=== PATIENT | female | born 1955 | race Caucasian/White ===

== ENCOUNTER 2020-09-02 18:16 | Emergency (ER) | payer BC, OTHER ==
[2020-09-02] MEDS ORDERED: Sodium Chloride 0.9% 10 ML Syringe FLUSH PRN (18:33)
[2020-09-02] MEDS ORDERED: Aspirin 81 MG Tab.Chew PO ONE (18:34)
[2020-09-02] MEDS ORDERED: GI Cocktail Oral Solution 30 ML PO ONE (18:35)
--- NOTE | 2020-09-02 18:53 | EDM.PDOC ---
ED HPI GENERAL MEDICAL PROBLEM - General Stated Complaint: CHEST PRESSURE Time Seen by Provider: 09/02/20 18:30 Source of Information: Reports: Patient, RN History Limitations: Reports: No Limitations - History of Present Illness INITIAL COMMENTS - FREE TEXT/NARRATIVE: Pt. presents to ER with complaints of substernal chest pressure, upper abdominal/epigastric pressure, and 'lightness in arms". Pt. states that the symptoms started about 30 min prior to coming to the ER. Pt. states that the symptoms had mostly resolved by the time she got to ER. Her only complaint now is that of burning sensation in her upper chest/neck area. Pt. states that she got up and walked around her house, and states that she felt like her heart was racing. She has a watch that monitors pulse, and states that the highest reading was 105. These symptoms have also since resolved. No shortness of breath. Denies any lightheadedness. No diaphoresis. Pt. states that she was at rest, sitting and watching TV at onset of symptoms. She states that she has never experienced this discomfort in the past. Denies any significant risk factors for heart disease other than obesity. She denies any hypertension, hyperlipidemia, or smoking. Denies any history of diabetes. She denies any increased shortness of breath or chest pain with walking at this time. Onset: Today Onset Date: 09/02/20 Location: Reports: Chest Quality: Reports: Pressure Associated Symptoms: Reports: Chest Pain. Denies: Cough, Diaphoresis, Fever/Chills, Headaches, Malaise, Nausea/Vomiting, Rash, Seizure, Shortness of Breath, Syncope, Weakness Chest Pain Score (Numeric/FACES): 2 - Related Data Allergies Allergy/AdvReac Type Severity Reaction Status Date / Time No Known Allergies Allergy Verified 09/02/20 18:33 ED ROS GENERAL - Review of Systems Review Of Systems: See Below Constitutional: Reports: No Symptoms HEENT: Reports: No Symptoms Respiratory: Reports: No Symptoms Cardiovascular: Reports: Other (see HPI) Endocrine: Reports: No Symptoms GI/Abdominal: Reports: Abdominal Pain (epigastric/upper abdominal pressure) : Reports: No Symptoms Musculoskeletal: Reports: No Symptoms Skin: Reports: No Symptoms Neurological: Reports: No Symptoms Psychiatric: Reports: No Symptoms Hematologic/Lymphatic: Reports: No Symptoms Immunologic: Reports: No Symptoms ED EXAM, GENERAL - Physical Exam Exam: See Below Exam Limited By: No Limitations General Appearance: Alert, WD/WN, No Apparent Distress Head: Atraumatic, Normocephalic Neck: Normal Inspection, Supple, Non-Tender, Full Range of Motion Respiratory/Chest: No Respiratory Distress, Lungs Clear, Normal Breath Sounds, No Accessory Muscle Use, Chest Non-Tender Cardiovascular: Normal Peripheral Pulses, Regular Rate, Rhythm, No Edema, No JVD, No Murmur Peripheral Pulses: 4+: Radial (R) GI/Abdominal: Soft, Non-Tender, No Organomegaly, No Distention, No Mass (Female) Exam: Deferred Rectal (Female) Exam: Deferred Extremities: Normal Inspection, Normal Range of Motion, Non-Tender, No Pedal Edema, Normal Capillary Refill Neurological: Alert, Oriented, CN II-XII Intact, Normal Cognition, Normal Gait, Normal Reflexes, No Motor/Sensory Deficits, Sensory/Motor Deficit Psychiatric: Normal Affect Skin Exam: Warm, Dry, Intact, Normal Color, No Rash Lymphatic: No Adenopathy Course - Vital Signs Last Recorded V/S: Last Vital Signs Temp 36.6 C 09/02/20 18:16 Pulse 98 09/02/20 18:16 Resp 19 09/02/20 18:16 BP 167/70 H 09/02/20 18:16 Pulse Ox 98 09/02/20 18:16 - Orders/Labs/Meds Orders: Active Orders 24 hr Category Date Time Status EKG Documentation Completion [RC] STAT Care 09/02/20 18:33 Active Sodium Chloride 0.9% [Saline Flush] Med 09/02/20 18:33 Active 10 ml FLUSH ASDIRECTED PRN Peripheral IV Insertion Adult [OM.PC] Routine Oth 09/02/20 18:34 Ordered Medication Orders Sodium Chloride (Saline Flush) 10 ml FLUSH ASDIRECTED PRN PRN Reason: Keep Vein Open Labs: Laboratory Tests 09/02/20 09/02/20 09/02/20 Range/Units 18:35 18:35 18:35 WBC 7.7 (4.0-10.0) x10^3/uL RBC 4.50 (4.00-5.50) x10^6/uL Hgb 14.1 (12.0-16.0) g/dL Hct 41.3 (33.0-47.0) % MCV 91.8 (78.0-93.0) fL MCH 31.3 (26.0-32.0) pg MCHC 34.1 (32.0-36.0) g/dL RDW Coeff of Elly 12.2 (10.0-15.0) % Plt Count 253 (130-400) x10^3/uL Neut % (Auto) 42.4 L (50.0-80.0) % Lymph % (Auto) 44.1 (25.0-50.0) % [place] % (Auto) 9.2 (2.0-11.0) % Eos % (Auto) 3.7 (0.0-4.0) % Baso % (Auto) 0.6 (0.2-1.2) % PT 10.2 (9.9-12.5) SEC INR 0.9 L (2.0-3.5) APTT (25.6-32.8) SEC D-Dimer, Quantitative 0.34 (<=0.58) mg/LFEU Sodium 142 (136-145) mmol/L Potassium 3.8 (3.5-5.1) mmol/L Chloride 105 (98-107) mmol/L Carbon Dioxide 26 (21-32) mmol/L Anion Gap 14.8 (5-15) mmol/L BUN 21 H (7-18) mg/dL Creatinine 1.0 (0.55-1.02) mg/dL Est Cr Clr Drug Dosing 51.81 mL/min Estimated GFR (MDRD) 56 Glucose 116 H (74-106) mg/dL Calcium 8.9 (8.5-10.1) mg/dL Corrected Calcium 9.14 (8.5-10.1) mg/dL Magnesium 2.2 (1.8-2.4) mg/dL Total Bilirubin 0.3 (0.2-1.0) mg/dL AST 19 (15-37) U/L ALT 37 (14-59) U/L Alkaline Phosphatase 79 (46-116) U/L Troponin I < 0.017 (<=0.056) ng/mL Total Protein 7.0 (6.4-8.2) g/dL Albumin 3.7 (3.4-5.0) g/dL Globulin 3.3 Albumin/Globulin Ratio 1.12 TSH, Ultra Sensitive 3.623 (0.358-3.74) uIU/mL 09/02/20 Range/Units 18:35 WBC (4.0-10.0) x10^3/uL RBC (4.00-5.50) x10^6/uL Hgb (12.0-16.0) g/dL Hct (33.0-47.0) % MCV (78.0-93.0) fL MCH (26.0-32.0) pg MCHC (32.0-36.0) g/dL RDW Coeff of Elly (10.0-15.0) % Plt Count (130-400) x10^3/uL Neut % (Auto) (50.0-80.0) % Lymph % (Auto) (25.0-50.0) % [place] % (Auto) (2.0-11.0) % Eos % (Auto) (0.0-4.0) % Baso % (Auto) (0.2-1.2) % PT (9.9-12.5) SEC INR (2.0-3.5) APTT 25.0 L (25.6-32.8) SEC D-Dimer, Quantitative (<=0.58) mg/LFEU Sodium (136-145) mmol/L Potassium (3.5-5.1) mmol/L Chloride (98-107) mmol/L Carbon Dioxide (21-32) mmol/L Anion Gap (5-15) mmol/L BUN (7-18) mg/dL Creatinine (0.55-1.02) mg/dL Est Cr Clr Drug Dosing mL/min Estimated GFR (MDRD) Glucose (74-106) mg/dL Calcium (8.5-10.1) mg/dL Corrected Calcium (8.5-10.1) mg/dL Magnesium (1.8-2.4) mg/dL Total Bilirubin (0.2-1.0) mg/dL AST (15-37) U/L ALT (14-59) U/L Alkaline Phosphatase (46-116) U/L Troponin I (<=0.056) ng/mL Total Protein (6.4-8.2) g/dL Albumin (3.4-5.0) g/dL Globulin Albumin/Globulin Ratio TSH, Ultra Sensitive (0.358-3.74) uIU/mL Meds: Medications Generic Name Dose Route Start Last Admin Trade Name Freq PRN Reason Stop Dose Admin Sodium Chloride 10 ml 09/02/20 18:33 Saline Flush FLUSH ASDIRECTED PRN Keep Vein Open Discontinued Medications Generic Name Dose Route Start Last Admin Trade Name Freq PRN Reason Stop Dose Admin Al Hydroxide/Mg Hydroxide 30 ml 09/02/20 18:35 09/02/20 18:42 Gi Cocktail PO 09/02/20 18:36 30 ml ONETIME ONE Administration Aspirin 324 mg 09/02/20 18:34 09/02/20 18:40 Aspirin PO 09/02/20 18:35 324 mg ONETIME ONE Administration Famotidine 20 mg 09/02/20 19:28 09/02/20 19:43 Pepcid IVPUSH 09/02/20 19:29 20 mg ONETIME ONE Administration Pantoprazole Sodium 40 mg 09/02/20 20:01 09/02/20 20:11 Protonix PO 09/02/20 20:02 40 mg ONETIME ONE Administration - Radiology Interpretation Free Text/Narrative:: Negative for acute pathology - Re-Assessments/Exams Free Text/Narrative Re-Assessment/Exam: 09/02/20 20:18 Pt. reported improvement in the burning in her throat/epigastric discomfort for a period of time after a GI cocktail. Denies any substernal chest pain/shortness of breath during her stay in ER. She was given pepcid 20mg and protonix 40mg PO in ER. She was offered admission and observation with trending of cardiac enzymes but refused, stating she was feeling much better than before. Departure - Departure Time of Disposition: 20:23 Disposition: Home, Self-Care 01 Clinical Impression: Atypical chest pain - Discharge Information Instructions: Gastroesophageal Reflux Disease, Adult, [id number] Referrals: Theresa Gasca, [Primary Care Provider] - Forms: ED Department Discharge Additional Instructions: Symptoms are most consistent with GERD/esophageal etiology. Start prilosec [id number] once daily Follow-up in clinic in 7-10 days, sooner if not gradually improving. Return to ER if you have any worsening discomfort, chest pain, shortness of breath, or other worrisome signs/symptoms. Sepsis Event Note (ED) - Focused Exam Vital Signs: Vital Signs Temp Pulse Resp BP Pulse Ox 09/02/20 18:16 36.6 C 98 19 167/70 H 98 - My Orders Last 24 Hours: My Active Orders 09/02/20 18:33 EKG Documentation Completion [RC] STAT Sodium Chloride 0.9% [Saline Flush] 10 ml FLUSH ASDIRECTED PRN 09/02/20 18:34 Peripheral IV Insertion Adult [OM.PC] Routine - Assessment/Plan Last 24 Hours: My Active Orders 09/02/20 18:33 EKG Documentation Completion [RC] STAT Sodium Chloride 0.9% [Saline Flush] 10 ml FLUSH ASDIRECTED PRN 09/02/20 18:34 Peripheral IV Insertion Adult [OM.PC] Routine Plan: Again, pt. reported feeling better at time of discharge. Etiology of discomfort likely GI in nature. less likely causes are gallbladder disease and cardiac ischemia. This was discussed at length with patient. She was offered admission and refused. EKG and cardiac enzymes were negative. Chest x-ray was negative. Advised her to return to ER if she has worsening discomfort, chest pain, fever, chills, shortness of breath, or other worrisome signs/symptoms. Follow-up in clinic in 7-10 days, sooner if not gradually improving.
[2020-09-02 19:14] LABS: CHLORIDE,CL 105 mmol/L (98-107); SODIUM,NA 142 mmol/L (136-145)
[2020-09-02 19:15] LABS: ANION GAP 14.8 mmol/L (5-15)
[2020-09-02] MEDS ORDERED: Famotidine 20 MG/2 ML SDV IVPUSH ONE (19:28)
--- NOTE | 2020-09-02 19:51 | CR ---
[id number] RAD/RAD Chest PA or AP 1V EXAM: SINGLE VIEW CHEST. INDICATION: CHEST PAIN COMPARISON: NO PREVIOUS SIMILAR EXAM IS AVAILABLE FINDINGS: The lungs are clear The cardiomediastinal contour is normal IMPRESSION: NO ACUTE PROCESS Isai Yang MD 09/02/20 1950 Thank you for allowing us to participate in the care of your patient.
[2020-09-02] MEDS ORDERED: Pantoprazole 40 MG Tab.CR PO ONE (20:01)
== END 2020-09-02 20:25 | disposition home or self-care (01) ==
LOC: VM.ED 18:16
DX: R07.89 Other chest pain (principal); R10.13 Epigastric pain
CPT/HCPCS: 71045; 80053; 83735; 84443; 84484; 85025; 85379; 85610; 85730; 93005; 96374; 99284; 99285-25; A9270-GY; J3490